=== PATIENT | male | born 1950 | race Caucasian/White ===

== ENCOUNTER 2023-03-01 17:31 | Emergency (ER) | payer BC, MEDICARE ==
[~2023-03-01] VITALS: Ht 175.3 cm; Wt 81.8 kg
[2023-03-01 17:38] VITALS: TEMP 99.5
[2023-03-01 18:11] VITALS: BP 111/78; PULSE 99; RESP 18
[2023-03-01] MEDS: HALOPERIDOL 5 MG TABLET PO ONE (20:09)
[2023-03-01] MEDS: DiphenhydrAMINE HCL 25 MG CAPSULE PO ONE (20:09)
[2023-03-01] MEDS: LORazepam 2 MG TABLET PO ONE (20:09)
== END 2023-03-01 21:56 | disposition home or self-care (01) ==
LOC: EMS 17:34
DX: F69 Unspecified disorder of adult personality and behavior (principal); F03.90 Unspecified dementia, unspecified severity, without behavioral disturbance, psychotic disturbance, mood disturbance, and anxiety; F32.A Depression, unspecified; E11.9 Type 2 diabetes mellitus without complications; I10 Essential (primary) hypertension; Z96.659 Presence of unspecified artificial knee joint; Z98.890 Other specified postprocedural states
CPT/HCPCS: 99284; Z7502; Z7610